=== PATIENT | female | born 1960 | race Caucasian/White ===

== ENCOUNTER 2017-07-19 07:25 | Day surgery (SDC) | payer OTHER ==
[2017-07-19] VITALS (13 sets, daily range): BP systolic 110–176; BP diastolic 64–101; PULSE 58–66; TEMP 36.8–37; O2SAT 97–100; Ht 147.3 cm; Wt 66.0 kg
[~2017-07-19] VITALS: Ht 147.3 cm; Wt 66.0 kg
[~2017-07-19 07:25] MED LIST: ALBU1AER9 INH; CALC1TAB27 PO; DYAZIDE PO; ERGO500037 PO; FURO20TA PO; METO-452 PO; PANT1TAB48 PO; ZNTT/150 PO
[2017-07-19] MEDS ORDERED: LIDOCAINE HCL 2% LOCAL 50ML VIAL INFIL ONE (07:26)
[2017-07-19] MEDS ORDERED: FENTANYL CITRATE INJ 50 MCG/1 ML 2 ML VIAL IV ONE ×2 (07:26→10:45)
[2017-07-19] MEDS ORDERED: LIDOCAINE 4% INH SOLN 4 ML BTL ONE (07:26)
[2017-07-19] MEDS ORDERED: MIDAZOLAM HCL 5 MG/ML 1 ML VIAL IV ONE ×2 (07:26→10:45)
--- NOTE | 2017-07-19 07:38 | History and Physical ---
History & Physical Date of Service Jul 19, 2017. History & Physical 60-year-old female here for evaluation of chronic cough 57-year-old female presents the office for continuation of care of chronic cough. Prior records reviewed. PMHx includes: Severe acid reflux (on PPI and H2B), multiple pulmonary nodules (largets 1mm RLL), hypertension, vitamin-D deficiency , CKD, pulmonary nodule chronic anxiety, GERD, PCOS, and hyperlipidemia. SHe is a life-long non-smoker. Patient denies any history of childhood asthma or allergies. She denies any history of PE/DVT or frequent pneumonia. She denies any history of personal tobacco use however reports secondhand exposure through her parents, and multiple family members. 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 Her occupation has required PPD in the past and these have never been positive. The patient was born in [place] and lived in [place] from 10/25/1979 85 before returning to [place]. She denies any travel. She lives with her . They do not have any pets. The home was built in the 1930s and she reports that they have an old must a basement but she does not go down there often. She states that they use wood stove for eat as well as an electric space heater but denies cough associated with her home heating system. Patient reports history of chronic cough beginning in approximately 2002. She states that her sister has the same cough. She had been prescribed multiple inhalers in the past however felt that these were provocative of cough. additionally she had been transitioned off from lisinopril to losartan and her anti-reflux regimen was escalated without improvement. She had seen ear nose and throat 06/2012 diagnosed with pharyngitis or laryngitis secondary to postnasal drip and reflux. This evaluation also noted cricopharyngeal muscle spasm. Exercise stress test from 08/2014 was unremarkable. initially seen by Dr. Moffett 02/2015 before 12 year history of chronic cough. She had established with Dr. Garcia 08/2012 for continuation of care. 02/[address] Moffett. she was prescribed Advair 500/50 and recommended d/c of losartan, ENT follow-up, updated PFTs (nL spirometry) and repeat non-contrast CT chest for reported h/o pulmonary nodule. Imaging did describe multiple pulmonary nodules the largest measuring 1 centimeter in the right lower lobe. This was followed by PET/CT 02/2015 which demonstrated stability of this 1 centimeter right lower lobe nodule without any FDG uptake. [ also noted left ovarian uptake - followed by gynecology]. Patient was evaluated by ENT 02/2015 and flexible laryngoscopy was completed and notable for mucus on the true vocal cords with mild arytenoid erythema. Adherence to her anti-reflux regimen was recommended and she was treated with two courses of fluconazole as well as a trial of Neurontin 300mg TID for possible neurogenic cough. Unfortunately, she did not note significant symptotic relief with these modalities. On follow-up pulmonary 05/2015, Anastasiia with Flonase/Nasacort was recommended as well as initiation of previously recommended Advair 500/50. PFT 04/23/2015: Very mild obstruction at lower lung volumes with no change in FEV1 post albuterol. Significant for air trapping and reduced DLCO: FVC: 1.92/70 %, FEV1: 1.65/79 %, FEV1/FVC: 86 %/102 %, FEF 25-75 %: 1.73/60 % (48 % change), RV: 1.6/107 %, T.51/86 %, RV/T %/126 %, DLCO: 51 %, dL/VA: 75 % Exam/interview today the patient reports that her cough has persisted. She describes it as annoying. And continues report symptoms which she describes as postnasal drip. She states the cough is worse with lying down, sitting, and working. She states that cough may increase when she transitioned from lying on her right to her left side and then her left side to her right side. She describes coughing paroxysm provoked with these changes which ultimately subsided after some time. She states that she has tried inhalers in the past which include the Advair although is unsure if this was helpful. She does state that for did make her cough after using it. She is interested in trying a nebulizer to determine if this is more efficacious and a hand-held inhaler. She does state that she is adherent to her anti-reflux regimen and has found this helpful. She states that she uses Anastasiia on an as-needed basis and this is palliative for her nasal congestion but has no effect on her cough. She does report symptoms of intermittent headache and vocal hoarseness. She states she has had and EGD in the past but has not had a bronchoscopy in the past. CT chest 02/2015 describes multiple right pulmonary nodules largest measuring 1.1 millimeters located in the right lower lobe. There is a 5 millimeter pleural-based nodule in the right middle lobe and additional tiny nodules suggest on the right upper lobe. There is bibasilar discoid atelectasis as well. CT chest 02/2017: Again seen are small multiple bilateral pulmonary nodules. There is a new pulmonary nodule in the lingula. A pulmonary nodule in the left lower lobe has increased in size previously measuring 3 millimeters now measuring 6 millimeter. There is a new pulmonary nodule in a medium right apex measuring 3 millimeters. There is a new small pulmonary nodule in the right lung base measuring 3 millimeter. There is a lobular nodule in the right lower lobe which has increased in size measuring 1.5 x 0.8 centimeters which I had previously measured 0.9 x 1.7 centimeter. There is several new tiny pulmonary nodules in the right lower lobe. There is no enlargement of the thoracic lymph nodes. PET-CT 03/04/2017: Minimal FDG activity in the largest of the several bilateral pulmonary nodules more suggestive of an infectious/inflammatory etiology. Active Problems 1. Abnormal findings on imaging test 2. Allergic rhinitis 3. Asthma 4. Chronic cough 5. Chronic laryngopharyngitis 6. CKD (chronic kidney disease) stage 3, GFR 30-59 ml/min 7. Common migraine without aura 8. Cyst of kidney, acquired 9. Diaphragmatic hernia 10. Dysphagia, pharyngoesophageal phase 11. Dysuria 12. Gastric reflux 13. Generalized anxiety disorder 14. Hemangioma of intra-abdominal structure 15. Hemorrhoids, external without complications 16. Hypercholesterolemia 17. Hyperlipidemia 18. Hypertension 19. Laryngopharyngeal reflux 20. Metabolic syndrome 21. Obesity (BMI 30.0-34.9) 22. Polycystic ovarian syndrome 23. Post-nasal drip 24. Preoperative testing 25. 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 Vitamin D deficiency 28. History of Endometrial polyp 29. History of Endometriosis Surgical History 1. History of Back Surgery 2. History of Section 3. History of Dilation And Curettage 4. History of Hysteroscopy With Resection For Intrauterine Polyp Removal 5. History of Inguinal Hernia Repair 6. History of Laparoscopy (Diagnostic) Gynecologic With Biopsy Family history 1. Family history of hyperlipidemia 2. Family history of hypertension 3. Family history of sleep apnea 4. Family history of thyroid disease 5. Family history of cardiac disorder 6. Family history of Breast Cancer Social History Never a smoker Never smoker Occasional alcohol use Denied: History of Tobacco Use Current Meds 1. Acetaminophen-Codeine #3 300-30 MG Oral Tablet; TAKE 1 TABLET DAILY NEEDED 2. Anastasiia Allergy 180 MG Oral Tablet; TAKE 1 TABLET DAILY NEEDED; 3. Biotin 1000 MCG Oral Tablet; TAKE DIRECTED 4. Ypfxhbs-Iftrbjlxm-Xynr Oral Tablet; TAKE 1 TABLET DAILY; 5. FLUoxetine HCl - 20 MG Oral Tablet; TAKE 1 TABLET DAILY; 6. Furosemide 20 MG Oral Tablet; TAKE 1 TABLET DAILY NEEDED; 7. HydrOXYzine HCl - 50 MG Oral Tablet; TAKE 1 TABLET AT BEDTIME; 8. Protonix 20 MG Oral Tablet Delayed Release; TAKE 1 TABLET DAILY; 9. RaNITidine HCl - 150 MG Oral Capsule; TAKE 1 CAPSULE TWICE DAILY; 10. Toprol XL 50 MG Oral Tablet Extended Release 24 Hour; TAKE 1 TABLET DAILY; 11. Triamterene-HCTZ 37.5-25 MG Oral Tablet; TAKE 1 TABLET DAILY; 12. Vitamin D (Ergocalciferol) 78331 UNIT Oral Capsule; TAKE 1 CAPSULE TUESDAYS AND Allergies 1. Penicillins Vitals Blood Pressure: 116 / 72, RUE, Sitting Height: 4 ft 9.5 in Weight: 149 lb 9 oz BMI Calculated: 31.81 BSA Calculated: 1.6 O2 Saturation: 99, RA Temperature: 100 F Heart Rate: 82 Respiration: 15 [email or web address] VitalsSectionEnd PhysicalExamSectionStart Physical Exam Constitutional: Well developed, well nourished female No acute distress. Head: + facial symmetry Eyes: EOMi, PERRLA, no conjunctival injection Mouth: Mallampati []. No erythema, exudate, or post nasal gtt Neck: Trachea midline. No adenopathy or masses Respiratory: Non-labored respirations. No wheeze, rales or rhonchi. No clubbing or cyanosis. Cardiovascular: RRR, no MRG. +2 radial pulses. <1s capillary refill. Abdomen: soft, active bowel sounds Integumentary: no rashes, or ecchymosis MSK/Extremities: Moving and developed symmetrically. No peripheral edema. No calf tenderness. Neurologic: A&O, data recall in-tact. Appropriate affect.
--- NOTE | 2017-07-19 08:40 | Procedure Note ---
Pre-Mod Sedation Assessment General Date of Moderate Sedation: Jul 19, 2017. Review Cardiovascular: regular rate, rhythm, no edema, no gallop, no JVD, no murmur Abdomen: normal bowel sounds, non tender, soft, no organomegaly, no pulsatile mass, normal rectal exam Lungs: chest non-tender, lungs clear, normal breath sounds, no respiratory distress Pre-Sedation Airway Assessment Smoking Status: Never Smoker Notes The planned sedation has been discussed with the patient and consent obtained. I have identified the patient, determined the appropriateness of sedation and have assessed the patient immediately prior to the procedure. All medicine(s) and interventions are by my order.
[2017-07-19] MEDS ORDERED: BIOT1CAP8 PO (08:42)
[2017-07-19] MEDS ORDERED: TRIA37.5 PO (08:42)
--- NOTE | 2017-07-19 09:47 | History & Physical Bridge Note ---
H&P Re-Evaluation Bridge Note: I have examined the patient, reviewed the History & Physical and in the interval since the performance of the History & Physical I have noted the following changes of clinical significance: No changes noted
--- NOTE | 2017-07-19 10:15 | Bronchoscopy Procedure Note ---
Bronchoscopy Procedure Note Procedure: Bronchoscopy, conscious sedation, bronchial lavage of the lingula Consent: Obtained through the patient placed into the chart Pre-procedural diagnosis: Chronic cough Post-procedural diagnosis: Chronic cough Start time: 951 End time: 1008 Total time: 17 minutes Analgesia: 2% liquid lidocaine: Via nebulizer 4% gel lidocaine: Via right naris 2% liquid lidocaine: Via bronchoscopy Sedation: Versed IV: 3mg Fentanyl IV: 75g Procedure: The [employer] video bronchoscope was used for this procedure and passed down through the right naris Right naris/posterior naris/posterior oropharynx: Anatomically within normal limits Glottis: Anatomically within normal limits Vocal cords: Proper abduction and abduction, anatomically within normal limits Subglottis/trachea/[place]: Anatomically within normal limits Right bronchial tree: Right mainstem bronchus: Anatomically within normal limits Right upper lobe: Anatomically within normal limits Bronchus intermedius: Anatomically within normal limits Right middle lobe: Anatomically within normal limits Right lower lobe: Anatomically within normal limits Findings: No significant findings noted Left bronchial tree: Left mainstem bronchus: Anatomically within normal limits Left upper lobe: Anatomically within normal limits Lingula: Anatomically within normal limits Left lower lobe: Anatomically within normal limits Findings: No significant findings noted Bronchial alveolar lavage: Lingula EBL: None Complications: None Follow-up: ASU
--- NOTE | 2017-07-19 10:15 | Procedure Note ---
Post-Moderate Sedation Plan General Date of Moderate Sedation Jul 19, 2017. Vital Signs: Vital Signs Past 12 Hours Date Time Temp Pulse Resp B/P (MAP) Pulse Ox O2 Delivery O2 Flow Rate FiO2 07/19/17 09:31 36.8 58 20 176/89 98 Room Air 07/19/17 08:45 36.8 58 20 176/89 (118) 98 Room Air Review - Discharge Plan Post Moderate Sedation Plan: On clinical assessment, the patient appears to have tolerated the conscious sedation without complications. Patient is recovering as anticipated. Patient will continue to be monitored by nursing and may be discharged when conscious sedation discharge criteria are met.
--- NOTE | 2017-07-19 10:19 | Discharge Instructions ---
Discharge Instructions Date of Service Jul 19, 2017. Admission Reason for Admission: Chronic Cough, Asthma Discharge Discharge Diagnosis / Problem: chronic cough Discharge Goals Goal(s): Diagnostic testing Activity Recommendations Activity Limitations: resume your previous activity . Instructions / Follow-Up Instructions / Follow-Up Follow-up with the [facility] pulmonary division Current Hospital Diet Patient's current hospital diet: Discharge Diet Recommended Diet: Regular Diet Procedures Procedures Performed: Bronchoscopy, conscious sedation, bronchial lavage of the lingula Pending Studies Studies pending at discharge: no Medical Emergencies . Who to Call and When: Medical Emergencies: If at any time you feel your situation is an emergency, please call 911 immediately. . Non-Emergent Contact Non-Emergency issues call your: [employer]it[employer] Reactor Technician . . "Provider Documentation" section prepared by Ezra Pennington. . VTE Core Measure Inpt VTE Proph given/why not?: Treatment not indicated
[2017-07-19] MEDS ORDERED: NURSING VERBAL MED ORDER ONE (10:30)
== END 2017-07-19 12:29 | disposition home or self-care (01) ==
LOC: C.ACU 07:25
PROVIDERS: ATTEND Internal Medicine Critical Care Medicine
DX: R05 Cough (principal); K21.9 Gastro-esophageal reflux disease without esophagitis; R91.1 Solitary pulmonary nodule; I12.9 Hypertensive chronic kidney disease with stage 1 through stage 4 chronic kidney disease, or unspecified chronic kidney disease; N18.3 Chronic kidney disease, stage 3 (moderate); F41.9 Anxiety disorder, unspecified; E78.5 Hyperlipidemia, unspecified; J45.909 Unspecified asthma, uncomplicated; E78.00 Pure hypercholesterolemia, unspecified; Z88.0 Allergy status to penicillin; Z98.890 Other specified postprocedural states; Z79.899 Other long term (current) drug therapy; Z82.49 Family history of ischemic heart disease and other diseases of the circulatory system; Z80.3 Family history of malignant neoplasm of breast; Z83.49 Family history of other endocrine, nutritional and metabolic diseases

== ENCOUNTER 2017-08-16 14:15 | Emergency (ER) | payer OTHER ==
[~2017-08-16] VITALS: Ht 147.3 cm; Wt 66.0 kg
[~2017-08-16 14:15] MED LIST changes: +BIOT1CAP8 PO; -DYAZIDE PO; +PANT1TAB3 PO; -PANT1TAB48 PO; +TRIA37.5 PO
[2017-08-16 14:20] VITALS: Ht 147.3 cm; Wt 66.0 kg
[2017-08-16 14:59] VITALS: O2SAT 100
[2017-08-16 15:04] LABS: BASO % 0.1 %; BASO ABS # 0.01 K/uL (0-0.2); COMPLETE YES; EOS % 0.8 %; HEMATOCRIT 38.2 % (37-47); IG% 0.3 %; LYMPH ABS # 1.27 K/uL (1.2-3.4); MEAN CELL VOLUME 81.4 fL (80-100); MEAN CORPUSCULAR HEMOGLOBIN 27.9 pg (25-34); MEAN CORPUSCULAR HGB CONC 34.3 g/dl (32-36); MEAN PLATELET VOLUME 9.8 fL (7.4-10.4); MONO % 4.5 %; NEUT % 80.3 %; PLATELET COUNT 278 K/uL (130-400); RED BLOOD COUNT 4.69 M/uL (4.2-5.4); WHITE BLOOD COUNT 9.08 K/uL (4.8-10.8)
[2017-08-16 15:12] LABS: POINT OF CARE TROPONIN I < 0.030 ng/ml (0-0.045)
[2017-08-16 15:17] LABS: PARTIAL THROMBOPLASTIN RATIO 0.9; PROTHROMBIN TIME (PATIENT) 10.8 SECONDS (9.0-12.0)
--- NOTE | 2017-08-16 15:18 | DIAGNOSTIC IMAGING REPORT ---
CT HEAD WITHOUT CONTRAST (CT) CLINICAL HISTORY: Dizziness COMPARISON STUDY: 08/05/2012 TECHNIQUE: Axial CT of the brain is performed from the vertex to the skull base. IV contrast was not administered for this examination. A dose lowering technique was utilized adhering to the principles of ALARA. CT DOSE: FINDINGS: No intra or extra-axial mass lesions are visualized. There is no CT evidence of acute cortical infarction. There is no evidence of midline shift. There is no acute hemorrhage. No calvarial fractures are visualized. There is no evidence of pathologic ventricular dilatation. There is no evidence of acute sinusitis IMPRESSION: No acute intracranial findings Electronically signed by: Basil Ocasio M.D. 08/16/2017 3:16 PM Dictated Date/Time: 08/16/2017 3:16 PM
[2017-08-16] MEDS ORDERED: FLUO20CA36 PO (15:26)
[2017-08-16] MEDS ORDERED: PANT20TA2 PO (15:26)
[2017-08-16] MEDS ORDERED: MXZC25 PO (15:26)
[2017-08-16] MEDS ORDERED: ALBINS/ NEB (15:26)
[2017-08-16] MEDS ORDERED: TPRSR/50 PO (15:26)
[2017-08-16] MEDS ORDERED: ERGO500011 PO (15:26)
--- NOTE | 2017-08-16 15:26 | DIAGNOSTIC IMAGING REPORT ---
CT OF THE CERVICAL SPINE WITHOUT CONTRAST CLINICAL HISTORY: Injury. Evaluate for fracture. COMPARISON STUDY: PET/CT March 03, 2017. TECHNIQUE: Helical axial images of the cervical spine were obtained without IV contrast. Sagittal and coronal reconstructions were viewed. A dose lowering technique was utilized adhering to the principles of ALARA. FINDINGS: There is straightening of the normal cervical lordosis. Craniocervical junction is intact. There is no acute cervical spine fracture or subluxation. There is no prevertebral edema. Note is made of moderate multilevel facet arthrosis and mild to moderate multilevel degenerative disc disease most pronounced at C4-C5. IMPRESSION: No acute cervical spine fracture or subluxation. Electronically signed by: Kike Erickson M.D. 08/16/2017 3:24 PM Dictated Date/Time: 08/16/2017 3:21 PM
[2017-08-16 15:27] LABS: BUN/CREATININE RATIO 13.8 (10-20); CALCIUM 9.3 mg/dl (8.5-10.1); CREATININE 1.3 mg/dl (0.60-1.20); POTASSIUM 3.8 mmol/L (3.5-5.1)
[2017-08-16] MEDS ORDERED: BIOT300T2 PO (15:27)
--- NOTE | 2017-08-16 15:58 | DIAGNOSTIC IMAGING REPORT ---
CHEST 2 VIEWS ROUTINE CLINICAL HISTORY: Chest pain. COMPARISON STUDY: Chest radiograph November 10, 2015. FINDINGS: Linear right lung opacity suggests atelectasis. A 1.3 cm right lower lobe nodule has likely slightly increased in size since prior exam. Linear left basilar opacity is suggestive of atelectasis. There is no pneumothorax or pleural effusion. Cardiomediastinal silhouette is normal. Pulmonary vascularity is normal. IMPRESSION: 1. No acute cardiopulmonary findings. 2. Slight increase in size of a 1.3 cm right lower lobe nodule. This favors a slowly enlarging neoplasm. Electronically signed by: Kike Erickson M.D. 08/16/2017 3:57 PM Dictated Date/Time: 08/16/2017 3:53 PM
[2017-08-16] MEDS ORDERED: OPTIRAY 320 IV PRN (16:00)
--- NOTE | 2017-08-16 16:39 | DIAGNOSTIC IMAGING REPORT ---
CT ANGIOGRAM OF THE CHEST CLINICAL HISTORY: Atypical chest pain. Dizziness. COMPARISON STUDY: Chest CT scans dated 02/28/2015 and 11/16/2012. Chest x-ray dated 08/16/2017. PET/CT dated 03/03/2017. TECHNIQUE: Following the IV administration of 81 cc of Optiray 320, CT angiogram of the chest was performed from the upper abdomen to the thoracic inlet utilizing the pulmonary embolus protocol. Images are reviewed in the axial, sagittal, and coronal planes. 3-D MIPS images are created and assessed. IV contrast was administered without complication. A dose lowering technique was utilized adhering to the principles of ALARA. CT DOSE: 249.76 mGy.cm FINDINGS: Thyroid: Imaged portions of the thyroid gland are normal in size and attenuation. Thoracic aorta: The thoracic aorta is normal in caliber and demonstrates 4-vessel variant arch anatomy. No dissection is seen. Pulmonary vasculature: The pulmonary trunk is normal in caliber. There are no filling defects identified in main, lobar, or segmental pulmonary branches to suggest pulmonary embolus. Heart: The heart is normal in size and configuration, and without pericardial effusion. Lungs and pleural spaces: The lungs and pleural spaces are clear. There is a 1.5 cm lobulated nodule at the right lung base seen on image #57. This has modestly increased in size from studies dating back to 2013. A 5 mm nodule in the right upper lobe on image #119, a 7 mm pleural-based nodule in the right middle lobe on image #111 in the 7 mm left lower lobe nodule image #66 of all modestly increased in size from previous. At least 10 additional subcentimeter nodules are identified. There is no lobar consolidation or pleural effusion. The trachea and central airways are patent. Mediastinum: There is no mediastinal lymphadenopathy. Jeannette: Clear. Axillae: There is no axillary lymphadenopathy. Upper abdomen: There is a small hiatal hernia. Partially visualized upper abdominal viscera is within normal limits. Skeletal structures: No lytic or blastic bony lesions are seen. IMPRESSION: 1. There is no evidence of pulmonary embolus in the main, lobar, or segmental pulmonary arteries. 2. There is no airspace consolidation or pleural effusion. 3. There are numerous (greater than 10) pulmonary nodules scattered throughout both lungs. The largest measures 1.5 cm end is located in the right lower lobe. These nodules have slowly increased in size as compared to prior studies dating back to 2013 and are pathologically indeterminant. The largest nodule was FDG avid on the 03/03/2017 PET examination and neoplasm is not excluded. Pulmonology follow-up is recommended as tissue sampling will likely be required for definitive characterization.. Electronically signed by: Larry Nguyen M.D. 08/16/2017 4:37 PM Dictated Date/Time: 08/16/2017 4:27 PM
[2017-08-16] MEDS ORDERED: KETOROLAC TROMETHAMINE 30 MG/ML VIAL IV STA (16:46)
[2017-08-16] MEDS ORDERED: SODIUM CHLORIDE 0.9% 500ML 500 ML IV STA (16:46)
[2017-08-16 17:52] VITALS: BP 165/78; PULSE 60; O2SAT 97
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
== END 2017-08-16 18:07 | disposition home or self-care (01) ==
LOC: C.EDB 14:16 → C.EDA 18:07
DX: R07.9 Chest pain, unspecified (principal); S00.83XA Contusion of other part of head, initial encounter; S40.011A Contusion of right shoulder, initial encounter; R20.2 Paresthesia of skin; W22.8XXA Striking against or struck by other objects, initial encounter

== ENCOUNTER 2018-08-28 14:42 | Observation (INO) ==
[2018-08-28] MEDS ORDERED: ONDANSETRON INJ 2 MG/ML 2 ML VIAL IV STA (14:54)
[2018-08-28] MEDS ORDERED: fentaNYL citrate 100 MCG/2 ML VIAL IV PRN (14:56)
[2018-08-28] MEDS ORDERED: SODIUM CHLORIDE 0.9% 1000ML 1,000 ML IV ONE (14:56)
--- NOTE | 2018-08-28 15:10 | Emergency Department Note ---
Entered by Eliud Joy acting as a scribe for Wilfrido Batista DO History of Present Illness General Chief complaint: Chest Pain Stated complaint: BACTERIAL UTI, VOMITING, BACK, CHEST PAIN, JAW/LT Time Seen by Provider: 08/28/18 14:49 Source: patient History of Present Illness Onset (ago): hour(s) (this morning) Location: abdomen (upper) Radiation: other (left jaw, left arm) Pain Consistency: + constant Quality: + burning Associated symptoms: + fever/chills and + nausea/vomiting The patient is a 58 year old female who presents to the Emergency Room with complaints of constant upper abdominal and chest pain beginning this morning. She describes her symptoms as �burning discomfort� and reports radiation to the left side of the jaw and left arm. She states that she has been nauseous and notes that she vomited today at 13:00. She reports a history of similar symptoms but states that they were not as severe in the past, and they resolved without intervention. She notes low-grade fevers. She reports that she is chronically short of breath with a cough, and she states that her cough is non- productive. She also notes chronic swelling of the legs. She notes that she was started on a course of antibiotics for a UTI, stating that she was exhibiting urinary frequency and burning with urination. She states that she drank coffee and had a small amount of pie this morning around 07:00. She reports that she had a stress test performed 3-4 years ago. She notes that she still has her gallbladder. She reports a history of hypertension and high cholesterol. She notes that she was prescribed medication for her cholesterol but stopped taking it after a couple of days. Home Medications Home Medications Medication Instructions Recorded Confirmed Type calcium carb-mag oxide-zinc ox 1 tab PO DAILY 08/28/18 08/28/18 History ergocalciferol (vitamin D2) 50,000 unit PO 2XWK 08/28/18 08/28/18 History [Vitamin D2] fluoxetine 20 mg PO HS 08/28/18 08/28/18 History metoprolol succinate 50 mg PO HS 08/28/18 08/28/18 History ondansetron HCl [Zofran] 4 mg PO Q8 PRN 08/28/18 08/28/18 History pantoprazole [Protonix] 20 mg PO QAM 08/28/18 08/28/18 History triamterene-hydrochlorothiazid 1 tab PO QAM 08/28/18 08/28/18 History ciprofloxacin HCl 250 mg PO Q12H 3 Days #6 tab 08/29/18 Rx promethazine 12.5 mg PO BID PRN #30 tab 08/29/18 Rx Allergies Allergy/AdvReac Type Severity Reaction Status Date / Time atorvastatin Allergy Intermediate MUSCLE Verified 08/28/18 15:14 ACHES & PAINS Penicillins Allergy Unknown HIVES Verified 08/28/18 15:14 Past Med/Surg History Medical History History of abdominal hernia RUDDY (acute kidney injury) Vitamin D deficiency Generalized anxiety disorder CKD (chronic kidney disease) stage 3, GFR 30-59 ml/min Diaphragmatic hernia Chest pain (Acute) Epigastric abdominal pain (Acute) HLD (hyperlipidemia) (Chronic) Hypertension (Chronic) Benign esophageal stricture Biopsy in 2013. Bleeding internal hemorrhoids Hypercholesterolemia Microcytic anemia Pulmonary nodules Surgical History History of section History of laparoscopy History of back surgery Family History Other CAD (coronary artery disease) Diabetes Social History Current Living Situation: Spouse and Family Other Information That Helps Us Care for You: No Feels Safe at Home: Yes Safety Concerns: Feels Safe At This Time Smoking Status: Never smoker Second Hand Exposure: Yes (As a child and at work. ) Hx Alcohol Use: Yes Alcohol type: wine Alcohol Intake Frequency: holidays/ special occasions only Hx Substance Use: No Beliefs That Will Affect Care: None Preferred Language: French Review of Systems See HPI for pertinent positives & negatives. and A total of 10 systems reviewed and were otherwise negative Physical Exam Vital Signs Vital Signs - 24 hr 08/28/18 23:55 08/29/18 03:52 08/29/18 07:50 Temperature 36.8 C 36.9 C 36.8 C Temperature Source Oral Oral Oral Pulse Rate [Apical] 59 L 60 59 L Respiratory Rate 18 22 18 Blood Pressure [Left Arm] 150/71 H 151/95 H 157/76 H Blood Pressure [Right Arm] Blood Pressure Mean [Left Arm] 97 113 103 Blood Pressure Position [Left Arm] Lying Lying Lying Pulse Oximetry 96 96 94 Oxygen Delivery Method Room Air Room Air Room Air 08/29/18 11:20 08/29/18 14:19 Temperature 36.8 C 36.8 C Temperature Source Oral Pulse Rate [Apical] 75 75 Respiratory Rate 18 18 Blood Pressure [Left Arm] 109/74 109/74 Blood Pressure [Right Arm] 135/86 Blood Pressure Mean [Left Arm] 85 Blood Pressure Position [Left Arm] Lying Pulse Oximetry 93 93 Oxygen Delivery Method Room Air GENERAL: Patient is awake and alert. She appears to be uncomfortable and anxious per EYES: The conjunctivae are clear. The pupils are round and reactive. EARS, NOSE, MOUTH AND THROAT: The nose is without any evidence of any deformity. Mucous membranes are moist tongue is midline NECK: The neck is nontender and supple. RESPIRATORY: Normal respiratory effort is noted there is no evidence of wheezing rhonchi or rales CARDIOVASCULAR: Regular rate and rhythm noted there no murmurs rubs or gallops normal S1 normal S2 GASTROINTESTINAL: Abdomen is mildly distended and soft. There is significant tenderness in the epigastric region. There is no guarding or rigidity noted. There is no pulsatile mass appreciated. BACK: No midline tenderness or or step-off noted range of motion in flexion extension as well as rotation no signs of muscle spasm noted MUSCULOSKELETAL/EXTREMITIES: There is no evidence of gross deformity full range of motion is noted in the hips and shoulders SKIN: There is no obvious evidence of any rash. There are no petechiae, pallor or cyanosis noted. NEUROLOGIC: Patient is awake alert and oriented x3 strength is symmetric patellar reflexes are 2+ bilaterally Course 1451: Past medical records reviewed. The patient was evaluated in room A3, and a complete history and physical examination were performed. 1551: The patient reports that she feels nauseous. 1607: She states that she does not feel much improvement after medication. 1731: I consulted Marybeth Graves PA-C: [facility] Hospitalist. She will evaluate the patient for hospitalization. Consultations Consultation #1: I consulted Marybeth Graves PA-C: [facility] Hospital[facility]. She will evaluate the patient for hospitalization. Time: 17:31 Administered Medications Discontinued Medications Al Hydrox/Mg Hydrox/Simethicone () Confirm Administered Dose 1 dose PO .STK-MED ONE Stop: 08/28/18 17:35 Last Admin: 08/28/18 17:37 Dose: 1 dose Aspirin (Aspirin) 324 mg PO NOW STA Stop: 08/28/18 17:17 Last Admin: 08/28/18 17:36 Dose: 324 mg Aspirin (Ecotrin) 81 mg PO QAM [facility] Stop: 09/28/18 08:59 Last Admin: 08/29/18 08:29 Dose: 81 mg Atropine Sulfate (Atropine Sulfate) Confirm Administered Dose 1 mg IV .STK-MED ONE Stop: 08/29/18 10:28 Last Admin: 08/29/18 11:33 Dose: Not Given Atropine Sulfate (Atropine Sulfate) Confirm Administered Dose 1 mg IV .STK-MED ONE Stop: 08/29/18 10:28 Last Admin: 08/29/18 11:33 Dose: Not Given Ciprofloxacin (Cipro) 250 mg PO Q12H [facility] Stop: 09/02/18 20:59 Last Admin: 08/29/18 08:29 Dose: 250 mg Admin: 08/28/18 20:28 Dose: 250 mg Al Hydrox/Mg Hydrox/Simethicone 18 ml/ Lidocaine HCl 6 ml/ [employer]ENTIFIER 1 ea 0 ml PO ONE ONE Stop: 08/28/18 17:17 Last Admin: 08/28/18 17:38 Dose: Not Given Dobutamine HCl (Dobutrex) Confirm Administered Dose 250 mg IV .STK-MED ONE Stop: 08/29/18 10:28 Last Admin: 08/29/18 11:34 Dose: Not Given Fentanyl Citrate (Fentanyl Citrate) 50 mcg IV Q15M PRN PRN Reason: Pain Stop: 09/11/18 14:55 Last Admin: 08/28/18 15:13 Dose: 50 mcg Fluoxetine HCl (Prozac) 20 mg PO HS [facility] Stop: 09/27/18 20:59 Last Admin: 08/28/18 20:28 Dose: 20 mg Heparin Sodium (Porcine) (Heparin Sodium (Porcine)) 5,000 units SQ Q8 [facility] Stop: 09/27/18 21:59 Last Admin: 08/29/18 06:25 Dose: 5,000 units Admin: 08/28/18 22:14 Dose: 5,000 units Sodium Chloride (Nss 1000ml) 1,000 mls @ 999 mls/hr IV .Q1H1M ONE Stop: 08/28/18 15:56 Last Infusion: 08/28/18 16:00 Dose: 0 mls/hr Admin: 08/28/18 15:06 Dose: 999 mls/hr Promethazine HCl 12.5 mg/ (Sodium Chloride) 50.5 mls @ 204 mls/hr IV NOW STA Stop: 08/28/18 16:06 Last Infusion: 08/28/18 16:32 Dose: 0 mls/hr Admin: 08/28/18 16:09 Dose: 204 mls/hr Sodium Chloride (Nss 1000ml) 1,000 mls @ 50 mls/hr IV .Q20H [facility] Stop: 09/27/18 19:59 Last Admin: 08/29/18 06:24 Dose: 100 mls/hr Infusion: 08/29/18 06:24 Dose: 100 mls/hr Admin: 08/28/18 20:29 Dose: 100 mls/hr Ioversol (Optiray 320 125ml) 120 ml IV ONCE PRN PRN Reason: Interaction Checking Stop: 09/01/18 16:43 Last Admin: 08/28/18 16:44 Dose: 120 ml Metoprolol Succinate (Toprol Xl) 50 mg PO HS [facility] Stop: 09/27/18 20:59 Last Admin: 08/28/18 20:29 Dose: 50 mg Metoprolol Tartrate (Lopressor) Confirm Administered Dose 5 mg IV .STK-MED ONE Stop: 08/29/18 10:28 Last Admin: 08/29/18 11:34 Dose: Not Given Metoprolol Tartrate (Lopressor) Confirm Administered Dose 5 mg IV .STK-MED ONE Stop: 08/29/18 10:28 Last Admin: 08/29/18 11:34 Dose: Not Given Ondansetron HCl (Zofran) 4 mg IV NOW STA Stop: 08/28/18 14:55 Last Admin: 08/28/18 15:04 Dose: 4 mg Ondansetron HCl (Zofran) 4 mg IV Q6H PRN PRN Reason: Nausea Stop: 09/27/18 19:49 Last Admin: 08/29/18 00:06 Dose: 4 mg Pantoprazole Sodium (Protonix) 40 mg PO QAM [facility] Stop: 09/28/18 08:59 Last Admin: 08/29/18 08:28 Dose: 40 mg Medical Decision Making Differential Diagnosis Differential diagnosis: Etiologies such as appendicitis, diverticulitis, PUD, biliary pathology, UTI, pancreatitis, obstruction, mesenteric ischemia, aortic pathology, infections, inflammatory bowel disease, renal colic, as well as others were entertained. Medical Records Attestation: I reviewed the patient's medical records. Home Medications Current Medication List: was personally reviewed by me Laboratory Data Attestation: I reviewed the patient's lab results. Result diagrams: 08/29/18 02:56 08/29/18 02:56 Lab Results 08/28/18 08/28/18 08/28/18 Range/Units 15:09 15:09 15:09 WBC 8.21 (4.8-10.8) K/uL RBC 4.75 (4.2-5.4) M/uL Hgb 13.0 (12.0-16.0) g/dL Hct 38.6 (37-47) % MCV 81.3 (80-100) fL MCH 27.4 (25-34) pg MCHC 33.7 (32-36) g/dL RDW Std Deviation 48.2 H (36.4-46.3) fL RDW Coeff of Cathy 16.0 H (11.5-14.5) % Plt Count 249 (130-400) K/uL MPV 9.9 (7.4-10.4) fL Immature Gran % (Auto) 0.1 % Neut % (Auto) 79.4 % Lymph % (Auto) 15.3 % Miller % (Auto) 4.6 % Eos % (Auto) 0.5 % Baso % (Auto) 0.1 % Immature Gran # (Auto) 0.01 (0.00-0.02) K/uL Neut # (Auto) 6.51 H (1.4-6.5) K/uL Lymph # (Auto) 1.26 (1.2-3.4) K/uL Miller # (Auto) 0.38 (0.11-0.59) K/uL Eos # (Auto) 0.04 (0-0.5) K/uL Baso # (Auto) 0.01 (0-0.2) K/uL PT 11.5 (9.0-12.0) Seconds INR 1.1 (0.9-1.1) APTT 24.0 (21.0-31.0) Seconds PTT Ratio 0.9 Sodium 139 (136-145) mmol/L Potassium 3.5 (3.5-5.1) mmol/L Chloride 102 (98-107) mmol/L Carbon Dioxide 26 (21-32) mmol/L Anion Gap 11.0 (3-11) BUN 11 (7-18) mg/dl Creatinine 1.64 H (0.6-1.2) mg/dl Est Cr Clr Drug Dosing 30.9 ml/min Est GFR ( Amer) 40.1 Est GFR (Non-Af Amer) 34.6 BUN/Creatinine Ratio 6.9 L (10-20) Glucose 107 H (70-99) mg/dl Calcium 9.1 (8.5-10.1) mg/dl Total Bilirubin 0.3 (0.1-1) mg/dl AST 13 L (15-37) U/L ALT 20 (12-78) U/L Alkaline Phosphatase 132 H (45-117) U/L Troponin I < 0.015 (0-0.045) ng/ml Total Protein 7.7 (6.4-8.2) gm/dl Albumin 3.9 (3.4-5.0) gm/dl Globulin 3.8 (2.5-4.0) gm/dl Albumin/Globulin Ratio 1.0 (0.9-2) Triglycerides (0-150) mg/dl Cholesterol (0-200) mg/dl LDL Cholesterol, Calc mg/dl VLDL Cholesterol, Calc mg/dl HDL Cholesterol mg/dl Cholesterol/HDL Ratio Lipase 120 (73-393) U/L Urine Color Urine Appearance (Clear) Urine pH (4.5-7.5) Ur Specific [place] (1.000-1.030) Urine Protein (Negative) Urine Glucose (UA) (Negative) Urine Ketones (Negative) Urine Blood (Negative) Urine Nitrite (Negative) Urine Bilirubin (Negative) Urine Urobilinogen (Negative) Ur Leukocyte Esterase (Negative) 08/28/18 08/28/18 08/29/18 Range/Units 20:45 Unknown 02:56 WBC (4.8-10.8) K/uL RBC (4.2-5.4) M/uL Hgb (12.0-16.0) g/dL Hct (37-47) % MCV (80-100) fL MCH (25-34) pg MCHC (32-36) g/dL RDW Std Deviation (36.4-46.3) fL RDW Coeff of Cathy (11.5-14.5) % Plt Count (130-400) K/uL MPV (7.4-10.4) fL Immature Gran % (Auto) % Neut % (Auto) % Lymph % (Auto) % Miller % (Auto) % Eos % (Auto) % Baso % (Auto) % Immature Gran # (Auto) (0.00-0.02) K/uL Neut # (Auto) (1.4-6.5) K/uL Lymph # (Auto) (1.2-3.4) K/uL Miller # (Auto) (0.11-0.59) K/uL Eos # (Auto) (0-0.5) K/uL Baso # (Auto) (0-0.2) K/uL PT (9.0-12.0) Seconds INR (0.9-1.1) APTT (21.0-31.0) Seconds PTT Ratio Sodium 141 (136-145) mmol/L Potassium 4.2 D (3.5-5.1) mmol/L Chloride 106 (98-107) mmol/L Carbon Dioxide 30 (21-32) mmol/L Anion Gap 5.0 (3-11) BUN 9 (7-18) mg/dl Creatinine 1.42 H (0.6-1.2) mg/dl Est Cr Clr Drug Dosing 36.2 ml/min Est GFR ( Amer) 47.7 Est GFR (Non-Af Amer) 41.2 BUN/Creatinine Ratio 6.5 L (10-20) Glucose 82 (70-99) mg/dl Calcium 8.4 L (8.5-10.1) mg/dl Total Bilirubin (0.1-1) mg/dl AST (15-37) U/L ALT (12-78) U/L Alkaline Phosphatase (45-117) U/L Troponin I < 0.015 < 0.015 (0-0.045) ng/ml Total Protein (6.4-8.2) gm/dl Albumin (3.4-5.0) gm/dl Globulin (2.5-4.0) gm/dl Albumin/Globulin Ratio (0.9-2) Triglycerides (0-150) mg/dl Cholesterol (0-200) mg/dl LDL Cholesterol, Calc mg/dl VLDL Cholesterol, Calc mg/dl HDL Cholesterol mg/dl Cholesterol/HDL Ratio Lipase (73-393) U/L Urine Color Yellow Urine Appearance Clear (Clear) Urine pH 8.0 H (4.5-7.5) Ur Specific [place] 1.009 (1.000-1.030) Urine Protein Negative (Negative) Urine Glucose (UA) Negative (Negative) Urine Ketones Negative (Negative) Urine Blood Negative (Negative) Urine Nitrite Negative (Negative) Urine Bilirubin Negative (Negative) Urine Urobilinogen Negative (Negative) Ur Leukocyte Esterase Negative (Negative) 08/29/18 08/29/18 Range/Units 02:56 02:56 WBC 4.98 (4.8-10.8) K/uL RBC 4.20 (4.2-5.4) M/uL Hgb 11.3 L (12.0-16.0) g/dL Hct 34.9 L (37-47) % MCV 83.1 (80-100) fL MCH 26.9 (25-34) pg MCHC 32.4 (32-36) g/dL RDW Std Deviation 50.3 H (36.4-46.3) fL RDW Coeff of Cathy 16.4 H (11.5-14.5) % Plt Count 191 (130-400) K/uL MPV 9.0 (7.4-10.4) fL Immature Gran % (Auto) % Neut % (Auto) % Lymph % (Auto) % Miller % (Auto) % Eos % (Auto) % Baso % (Auto) % Immature Gran # (Auto) (0.00-0.02) K/uL Neut # (Auto) (1.4-6.5) K/uL Lymph # (Auto) (1.2-3.4) K/uL Miller # (Auto) (0.11-0.59) K/uL Eos # (Auto) (0-0.5) K/uL Baso # (Auto) (0-0.2) K/uL PT (9.0-12.0) Seconds INR (0.9-1.1) APTT (21.0-31.0) Seconds PTT Ratio Sodium (136-145) mmol/L Potassium (3.5-5.1) mmol/L Chloride (98-107) mmol/L Carbon Dioxide (21-32) mmol/L Anion Gap (3-11) BUN (7-18) mg/dl Creatinine (0.6-1.2) mg/dl Est Cr Clr Drug Dosing ml/min Est GFR ( Amer) Est GFR (Non-Af Amer) BUN/Creatinine Ratio (10-20) Glucose (70-99) mg/dl Calcium (8.5-10.1) mg/dl Total Bilirubin (0.1-1) mg/dl AST (15-37) U/L ALT (12-78) U/L Alkaline Phosphatase (45-117) U/L Troponin I (0-0.045) ng/ml Total Protein (6.4-8.2) gm/dl Albumin (3.4-5.0) gm/dl Globulin (2.5-4.0) gm/dl Albumin/Globulin Ratio (0.9-2) Triglycerides 107 (0-150) mg/dl Cholesterol 125 (0-200) mg/dl LDL Cholesterol, Calc 69 mg/dl VLDL Cholesterol, Calc 21 mg/dl HDL Cholesterol 35 mg/dl Cholesterol/HDL Ratio 4 Lipase (73-393) U/L Urine Color Urine Appearance (Clear) Urine pH (4.5-7.5) Ur Specific [place] (1.000-1.030) Urine Protein (Negative) Urine Glucose (UA) (Negative) Urine Ketones (Negative) Urine Blood (Negative) Urine Nitrite (Negative) Urine Bilirubin (Negative) Urine Urobilinogen (Negative) Ur Leukocyte Esterase (Negative) Imaging Data Radiologist's Impression: Radiology results as stated below per my review and the radiologist's interpretation: CT OF THE ABDOMEN AND PELVIS WITH CONTRAST CLINICAL HISTORY: Upper abdominal pain. COMPARISON STUDY: PET/CT March 03, 2017. TECHNIQUE: Following IV administration of 120 mL of Optiray-320, axial images of the abdomen and pelvis were obtained from the lung bases to the proximal femurs. Images were reviewed in the axial, sagittal, and coronal planes. IV contrast was administered without complication. Automated exposure control was utilized for the study. A dose lowering technique was utilized adhering to the principles of ALARA. CT DOSE: 400.42 mGy.cm FINDINGS: Multiple nodules within visualized portions of the lower lungs are unchanged since CT of April 18, 2018, including a 1.3 cm right lower lobe nodule on image 36 of 426. No pneumatosis, free air or portal venous gas is present. There is fatty infiltration of the liver. The spleen, adrenal glands and pancreas are normal. A 1.7 cm lesion within the upper pole of the left kidney represents a hyperdense cyst when correlating with prior noncontrast chest CT. There is a cyst within the upper pole the right kidney. There is no evidence for a bowel obstruction. The appendix is normal. There is no ascites or lymphadenopathy. There is no evidence for a bowel obstruction. No bowel wall thickening is noted. There are no suspicious osseous lesions. Major vasculature is patent. No peripancreatic or pericholecystic infiltration is present. IMPRESSION: 1. No acute process within the abdomen or pelvis. 2. Multiple pulmonary nodules within the lower lungs which are unchanged since CT of April 18, 2018. These remain indeterminate. 3. Fatty infiltration of the liver. 4. Normal appendix. No bowel obstruction. Electronically signed by: Kike Erickson M.D. 08/28/2018 5:06 PM XR chest 1V portable CLINICAL HISTORY: Chest pain. COMPARISON STUDY: Chest CT April 18, 2018 and chest radiograph August 16, 2017. FINDINGS: There is no pneumothorax or pleural effusion. There is no consolidation or evidence for pulmonary edema. 1.3 cm right lower lobe nodule is unchanged since CT of April 18, 2018. This remains indeterminate. There is no evidence for pulmonary edema. IMPRESSION: 1. No acute cardiopulmonary findings. 2. No significant change in a 1.3 cm right lower lobe nodule which remains indeterminate. Electronically signed by: Kike Erickson M.D. 08/28/2018 3:44 PM ECG Data Attestation: I personally reviewed and interpreted this ECG as follows: Indication: abdominal pain Rate (beats per minute): 72 Rhythm: normal sinus Findings: no PAC, no PVC, no ST depression and no ST elevation Comparison ECG Date: from (08/16/17) Change: no significant change Additional Comments: Repeat ECG shows a normal sinus rhythm at a rate of 70 bpm. There is no ectopy or acute ST segment abnormalities. There is no change from the first ECG. Blood Pressure Blood Pressure Findings: Elevated blood pressure Blood Pressure Disposition: further management by hospitalist JOSE Narrative The patient is a 58-year-old female who presented to the emergency department for an evaluation of chest discomfort. The patient's pain appeared to be epigastric as well as substernal. She did have some radiation of the pain to her shoulder as well as her jaw. The patient was concerned that this could be cardiac related. Her EKG did not show any acute ST segment abnormalities and her initial troponin was negative. I discussed the patient's laboratory and radiographic studies with her. I also discussed the limitations of the emergency department workup for chest pain with her. A CT abdomen and pelvis was obtained to ensure that this does not represent an intra-abdominal cause for her pain ultimately no cause could be found. For this reason I discussed her case with the on-call [facility] hospitalist group. They have agreed to evaluate the patient in the emergency department for further management and disposition. The patient was treated with pain medication in the emergency department. She was also given aspirin and a GI cocktail. Impression & Plan Chest pain, Epigastric abdominal pain Discharge Plan Visit Data *Final* Discharge Date/Time: 08/28/18 19:12 Chief Complaint: Chest Pain Stated Complaint: BACTERIAL UTI, VOMITING, BACK, CHEST PAIN, JAW/LT ED Provider: Wilfrido Batista Discharge Problem: Chest pain, Epigastric abdominal pain Patient Disposition: Admitted As Inpatient Discharge Instructions Interventions: ED Discharge Assessment Last Done: 08/28/18 19:12 The scribe's documentation has been prepared under my direction and personally reviewed by me in its entirety. I confirm that the note above accurately reflects all work, treatment, procedures, and medical decision making performed by me.
[2018-08-28 15:18] LABS: Basophils # (auto) 0.01 K/uL (0-0.2); Basophils % (auto) 0.1 %; Eosinophils # (auto) 0.04 K/uL (0-0.5); Eosinophils % (auto) 0.5 %; Hematocrit (blood only) 38.6 % (37-47); Immature Granulocytes # (auto) 0.01 K/uL (0.00-0.02); Immature Granulocytes % (auto) 0.1 %; Lymphocytes # (auto) 1.26 K/uL (1.2-3.4); Lymphocytes % (auto) 15.3 %; Mean Corpuscular Hgb Conc 33.7 g/dL (32-36); Mean Corpuscular Volume 81.3 fL (80-100); Mean Platelet Volume 9.9 fL (7.4-10.4); Monocytes # (auto) 0.38 K/uL (0.11-0.59); Monocytes % (auto) 4.6 %; Neutrophils # (auto) 6.51 K/uL (1.4-6.5); Neutrophils % (auto) 79.4 %; Platelet Count 249 K/uL (130-400); RDW Standard Deviation 48.2 fL (36.4-46.3); Red Blood Count 4.75 M/uL (4.2-5.4); White Blood Count 8.21 K/uL (4.8-10.8)
[2018-08-28 15:26] LABS: INR 1.1 (0.9-1.1); Partial Thromboplastin Ratio 0.9; Prothrombin Time 11.5 Seconds (9.0-12.0)
[2018-08-28 15:44] LABS: Alanine Aminotransferase 20 U/L (12-78); Albumin Level 3.9 gm/dl (3.4-5.0); Aspartate Aminotransferase 13 U/L (15-37); BUN Creatinine Ratio 6.9 (10-20); Blood Urea Nitrogen 11 mg/dl (7-18); Calcium 9.1 mg/dl (8.5-10.1); Carbon Dioxide 26 mmol/L (21-32); Chloride 102 mmol/L (98-107); Creatinine Clr Calc Pharmacy 30.9 ml/min; Est GFR (African American) 40.1; Est GFR (Non-African American) 34.6; Glucose 107 mg/dl (70-99); Potassium 3.5 mmol/L (3.5-5.1); Sodium 139 mmol/L (136-145)
--- NOTE | 2018-08-28 15:46 | XRay Report ---
XR chest 1V portable CLINICAL HISTORY: Chest pain. COMPARISON STUDY: Chest CT April 18, 2018 and chest radiograph August 16, 2017. FINDINGS: There is no pneumothorax or pleural effusion. There is no consolidation or evidence for pul monary edema. 1.3 cm right lower lobe nodule is unchanged since CT of April 18, 2018. This remains i ndeterminate. There is no evidence for pulmonary edema. IMPRESSION: 1. No acute cardiopulmonary findings. 2. No significant change in a 1.3 cm right lower lobe nodule which remains indeterminate. Electronically signed by: Kike Erickson M.D. 08/28/2018 3:44 PM
[2018-08-28 15:49] LABS: Alkaline Phosphatase 132 U/L (45-117); Bilirubin,Total 0.3 mg/dl (0.1-1); Globulin 3.8 gm/dl (2.5-4.0); Total Protein 7.7 gm/dl (6.4-8.2); Troponin I < 0.015 ng/ml (0-0.045)
[2018-08-28] MEDS ORDERED: PROMETHAZINE HCL 12.5 MG in SODIUM CHLORIDE 0.9% 50 ML IV STA (15:52)
[2018-08-28 15:56] LABS: Appearance Urine Clear (Clear); Bilirubin Urine Negative (Negative); Color Urine Yellow; Glucose Urine UA Negative (Negative); Ketones Urine Negative (Negative); Leukocyte Esterase Urine Negative (Negative); Nitrite Urine Negative (Negative); Protein Urine Negative (Negative); Specific Gravity Urine 1.009 (1.000-1.030); Urobilinogen Urine Negative (Negative)
[2018-08-28] MEDS ORDERED: OPTIRAY 320 125ml IV PRN (16:44)
--- NOTE | 2018-08-28 17:08 | CT Scan Report ---
CT OF THE ABDOMEN AND PELVIS WITH CONTRAST CLINICAL HISTORY: Upper abdominal pain. COMPARISON STUDY: PET/CT March 03, 2017. TECHNIQUE: Following IV administration of 120 mL of Optiray-320, axial images of the abdomen and pelv is were obtained from the lung bases to the proximal femurs. Images were reviewed in the axial, sagit hector, and coronal planes. IV contrast was administered without complication. Automated exposure contr ol was utilized for the study. A dose lowering technique was utilized adhering to the principles of ALARA. CT DOSE: 400.42 mGy.cm FINDINGS: Multiple nodules within visualized portions of the lower lungs are unchanged since CT of 2017, including a 1.3 cm right lower lobe nodule on image 36 of 426. No pneumatosis, free ai r or portal venous gas is present. There is fatty infiltration of the liver. The spleen, adrenal glan ds and pancreas are normal. A 1.7 cm lesion within the upper pole of the left kidney represents a hyp erdense cyst when correlating with prior noncontrast chest CT. There is a cyst within the upper pole the right kidney. There is no evidence for a bowel obstruction. The appendix is normal. There is no a scites or lymphadenopathy. There is no evidence for a bowel obstruction. No bowel wall thickening is noted. There are no suspicious osseous lesions. Major vasculature is patent. No peripancreatic or per icholecystic infiltration is present. IMPRESSION: 1. No acute process within the abdomen or pelvis. 2. Multiple pulmonary nodules within the lower lungs which are unchanged since CT of April 18, 2018. These remain indeterminate. 3. Fatty infiltration of the liver. 4. Normal appendix. No bowel obstruction. Electronically signed by: Kike Erickson M.D. 08/28/2018 5:06 PM
[2018-08-28] MEDS ORDERED: ASPIRIN CHEW 324 MG PO STA (17:16)
[2018-08-28] MEDS ORDERED: ALUMINUM/MAGNESIUM SUSP 18 ML, LIDOCAINE HCL VISCOUS 2% 6 ML, BARCODE IDENTIFIER 1 EA PO ONE (17:16)
[2018-08-28] MEDS ORDERED: GI COCKTAIL ED USE PO ONE (17:34)
--- NOTE | 2018-08-28 19:00 | History & Physical Report ---
Date of Service August 28, 2018 Assessment & Plan (1) Chest pain: Possible related to GI etiology vs anxiety Need to R/O ACS received aspirin 325 mg in the ER initial Troponin negative EKG showed no ischemic changes Will trend troponin Will get an echo Continue asa 81 mg and metoprolol will add protonix Statin intolerance cardio consult Will make NPO after midnight if plan for any stress test will monitor in tele (2) RUDDY (acute kidney injury): (3) CKD (chronic kidney disease) stage 3, GFR 30-59 ml/min: Possible related to Bactrium in the setting of poor oral intake creatine on admission 1.6, baseline btw 1.1 to 1.3 NSS at 100cc Avoid nephrotoxic agents Monitor BMP (4) Epigastric abdominal pain: (5) Diaphragmatic hernia: CT abd/pelvis showed no acute finding PPI daily and zofran prn for nausea (6) Generalized anxiety disorder: Continue Zoloft (7) Vitamin D deficiency: On vit d [id number] 2xweek (8) HLD (hyperlipidemia): Chol 243 and LDL 143 on 06/23 Stopped statin 3 weeks ago Check Lipid panel (9) UTI (urinary tract infection): outpatient urine cx only showed [id number] colonies Was starting on Bactrium Will hold bactrium due to worsening creatinine UA on admission negative Complaint of dysuria and urgency today Will start on cipro BID Intermittent blurry vision Possible related to migraine Will get a carotid doppler to reassure her since she is very anxious about it. DVT px on heparin subq Code status full code History of Present Illness Chief Complaint: Chest pain Primary Care Provider: Marjan Woodard DO 58 y/o Female with PMH of HTN, Dyslipidemia, Anxiety , Diaphragmatic hernia , CKD stage 3 came to the ER for mid epigastric and chest discomfort. Pt said that the mid episgatric/ chest discomfort started on yesterday. She describes her symptoms as �burning discomfort�, then later she said that she feels a pressure in her chest like someone sitting in her chest. she said that it radiating to her left jaw area and left shoulder area associated with numbness in her arm. She said that today her chest discomfort worsening. She said that she had an episode of vomiting today. She was seen at her PCP last Wednesday for UTI and was given bactrium. She said that she had many stress test done in the past and last one was about 4 years ago. She said that she was starting on statin but could not tolerate due to muscle ache. Pt said that she has been having a burning pain around her carotid area for the last 2 weeks that was associated with blurry vision. She said that she does have SOB on exertion at baseline. She has not been using her neb treatment because her insurance does not cover it. Received fentanyl, aspirin and GI cokctail in the ER. Currently denies any chest pain, palpitation and sob. Allergies Allergy/AdvReac Type Severity Reaction Status Date / Time atorvastatin Allergy Intermediate MUSCLE Verified 08/28/18 15:14 ACHES & PAINS Penicillins Allergy Unknown HIVES Verified 08/28/18 15:14 Home Medications Home Medications Medication Instructions Recorded Confirmed Type calcium carb-mag oxide-zinc ox 1 tab PO DAILY 08/28/18 08/28/18 History ergocalciferol (vitamin D2) 50,000 unit PO 2XWK 08/28/18 08/28/18 History [Vitamin D2] fluoxetine 20 mg PO HS 08/28/18 08/28/18 History metoprolol succinate 50 mg PO HS 08/28/18 08/28/18 History ondansetron HCl [Zofran] 4 mg PO Q8 PRN 08/28/18 08/28/18 History pantoprazole [Protonix] 20 mg PO QAM 08/28/18 08/28/18 History sulfamethoxazole-trimethoprim 1 tab PO BID 08/28/18 08/28/18 History [Bactrim DS] triamterene-hydrochlorothiazid 1 tab PO QAM 08/28/18 08/28/18 History Past Med/Surg History Family History Other CAD (coronary artery disease) Diabetes Social History Current Living Situation: Spouse and Family Other Information That Helps Us Care for You: No Feels Safe at Home: Yes Safety Concerns: Feels Safe At This Time Smoking Status: Never smoker Second Hand Exposure: Yes (As a child and at work. ) Hx Alcohol Use: Yes Alcohol type: wine Alcohol Intake Frequency: holidays/ special occasions only Hx Substance Use: No Beliefs That Will Affect Care: None Preferred Language: Beninese Communication Ability: Effective Personnel Administrator Required: No Review of Systems All systems reviewed & are unremarkable except as noted in HPI & below Physical Exam 2 Vital Signs (Past 24 Hours): Last Vital Signs Temp 37.0 C 08/28/18 15:45 Pulse 76 08/28/18 17:05 Resp 20 08/28/18 17:05 BP 124/80 08/28/18 17:05 Pulse Ox 95 08/28/18 17:05 Physical Exam: General- No acute distress Head- atraumatic Eyes- PERRL, EOMI, ENT- oropharynx clear Neck- supple, no JVD Lungs- clear to auscultation Heart- regular rhythm; no murmur Abdomen- normal bowel sounds, soft, +tender Extremities- no calf tenderness Neuro- alert, oriented x 3; PERRL, EOMI; no facial palsy; no dysarthria Skin- warm & dry Results & Data Diagnostic Findings CT OF THE ABDOMEN AND PELVIS WITH CONTRAST CLINICAL HISTORY: Upper abdominal pain. COMPARISON STUDY: PET/CT March 03, 2017. TECHNIQUE: Following IV administration of 120 mL of Optiray-320, axial images of the abdomen and pelvis were obtained from the lung bases to the proximal femurs. Images were reviewed in the axial, sagittal, and coronal planes. IV contrast was administered without complication. Automated exposure control was utilized for the study. A dose lowering technique was utilized adhering to the principles of ALARA. CT DOSE: 400.42 mGy.cm FINDINGS: Multiple nodules within visualized portions of the lower lungs are unchanged since CT of April 18, 2018, including a 1.3 cm right lower lobe nodule on image 36 of 426. No pneumatosis, free air or portal venous gas is present. There is fatty infiltration of the liver. The spleen, adrenal glands and pancreas are normal. A 1.7 cm lesion within the upper pole of the left kidney represents a hyperdense cyst when correlating with prior noncontrast chest CT. There is a cyst within the upper pole the right kidney. There is no evidence for a bowel obstruction. The appendix is normal. There is no ascites or lymphadenopathy. There is no evidence for a bowel obstruction. No bowel wall thickening is noted. There are no suspicious osseous lesions. Major vasculature is patent. No peripancreatic or pericholecystic infiltration is present. IMPRESSION: 1. No acute process within the abdomen or pelvis. 2. Multiple pulmonary nodules within the lower lungs which are unchanged since CT of April 18, 2018. These remain indeterminate. 3. Fatty infiltration of the liver. 4. Normal appendix. No bowel obstruction. Electronically signed by: Kike Erickson M.D. 08/28/2018 5:06 PM Dictated: 08/28/18 1659 Transcribed: 08/28/18 1659 XR chest 1V portable CLINICAL HISTORY: Chest pain. COMPARISON STUDY: Chest CT April 18, 2018 and chest radiograph August 16, 2017. FINDINGS: There is no pneumothorax or pleural effusion. There is no consolidation or evidence for pulmonary edema. 1.3 cm right lower lobe nodule is unchanged since CT of April 18, 2018. This remains indeterminate. There is no evidence for pulmonary edema. IMPRESSION: 1. No acute cardiopulmonary findings. 2. No significant change in a 1.3 cm right lower lobe nodule which remains indeterminate. Electronically signed by: Kike Erickson M.D. 08/28/2018 3:44 PM Dictated: 08/28/18 1541 Transcribed: 08/28/18 1541 Code Status & VTE Plan VTE Prophylaxis Plan VTE Prophylaxis will be ordered: Yes _ (1) Chest pain Chest pain type: precordial pain Ischemic chest pain type: Qualified Code(s ): R07.2 - Precordial pain
[2018-08-28] MEDS ORDERED: NITROGLYCERIN SL 0.4 MG/TAB TAB SL PRN (19:50)
[2018-08-28] MEDS ORDERED: ONDANSETRON INJ 2 MG/ML 2 ML VIAL IV PRN (19:50)
[2018-08-28] MEDS ORDERED: ALBUT/IPRATROP 3MG/0.5MG NEB 3 ML VIAL NEB PRN (20:00)
[2018-08-28] MEDS: CIPROFLOXACIN 250 MG TAB PO SCH (20:28)
[2018-08-28] MEDS: SODIUM CHLORIDE 0.9% 1000ML 1,000 ML IV SCH (20:29)
[2018-08-28] MEDS ORDERED: FLUOXETINE HCL 20 MG CAP PO SCH (21:00)
[2018-08-28] MEDS ORDERED: METOPROLOL SUCC 50MG EXT REL TAB PO SCH (21:00)
[2018-08-28] MEDS: HEPARIN SOD 5,000 UNIT/0.5 ML VIAL SQ SCH (22:14)
[2018-08-29 03:03] LABS: Hematocrit (blood only) 34.9 % (37-47); Hemoglobin 11.3 g/dL (12.0-16.0); Mean Corpuscular Hgb Conc 32.4 g/dL (32-36); Mean Corpuscular Volume 83.1 fL (80-100); Platelet Count 191 K/uL (130-400); RDW Coefficient of Variation 16.4 % (11.5-14.5); RDW Standard Deviation 50.3 fL (36.4-46.3); White Blood Count 4.98 K/uL (4.8-10.8)
[2018-08-29 03:31] LABS: BUN Creatinine Ratio 6.5 (10-20); Blood Urea Nitrogen 9 mg/dl (7-18); Calcium 8.4 mg/dl (8.5-10.1); Carbon Dioxide 30 mmol/L (21-32); Chloride 106 mmol/L (98-107); Creatinine Clr Calc Pharmacy 36.2 ml/min; Est GFR (African American) 47.7; Est GFR (Non-African American) 41.2; Glucose 82 mg/dl (70-99); Potassium 4.2 mmol/L (3.5-5.1); Sodium 141 mmol/L (136-145); Troponin I < 0.015 ng/ml (0-0.045)
[2018-08-29] MEDS: SODIUM CHLORIDE 0.9% 1000ML 1,000 ML IV SCH (06:24)
[2018-08-29] MEDS: HEPARIN SOD 5,000 UNIT/0.5 ML VIAL SQ SCH (06:25)
--- NOTE | 2018-08-29 06:56 | Ultrasound Report ---
ULTRASOUND OF THE CAROTID ARTERIES CLINICAL HISTORY: Neck/carotid pain with blurry vision. COMPARISON STUDY: None. TECHNIQUE: Real-time, grayscale, and color Doppler sonography of the carotid arteries was performed. Imaging reviewed in the transverse and longitudinal planes. NASCET criteria was utilized for stenosis calcification. FINDINGS: There is minimal atherosclerotic plaque present . The peak systolic velocity within the right internal carotid artery is 64 cm/sec. The systolic velocity ratio of right internal to common carotid artery is 0.9. The peak systolic velocity within the left internal carotid artery is 66 cm/sec. The systolic velocity ratio left internal to common carotid artery is 1.1. Antegrade flow is seen in the vertebral arteries. The external carotid arteries are patent. Blood pressure in the right arm measured 139 mm/Hg. Blood pressure in the left arm measured 133 mm/H g. IMPRESSION: No evidence of hemodynamically significant carotid stenosis. Electronically signed by: Basil Ocasio M.D. 08/29/2018 6:55 AM
[2018-08-29] MEDS: CIPROFLOXACIN 250 MG TAB PO SCH (08:29)
[2018-08-29] MEDS ORDERED: ASPIRIN 81 MG ECTAB PO SCH (09:00)
[2018-08-29] MEDS ORDERED: PANTOprazole 40 MG TAB PO SCH (09:00)
--- NOTE | 2018-08-29 09:12 | Hospitalist Progress Note ---
Date of Service August 29, 2018 Assessment & Plan (1) Chest pain: Possible related to GI etiology vs anxiety Mostly atypical chest pain Received aspirin 325 mg in the ER Troponin x3 negative EKG showed no ischemic changes No arrhythmia on tele monitor Continue asa 81 mg and metoprolol Continue protonix daily Statin intolerance Cardio on board Stress echocardiography today demonstrated hyperdynamic LV response no evidence of stress-induced ischemia by EKG Recommend continuing current dosing of Toprol and triamterene hydrochlorothiazide Will resume diet resolved (2) RUDDY (acute kidney injury): (3) CKD (chronic kidney disease) stage 3, GFR 30-59 ml/min: Possible related to Bactrium in the setting of poor oral intake creatinine on admission 1.6, baseline btw 1.1 to 1.3 Creatine 1.4 today,After receiving NSS at 100cc Avoid nephrotoxic agents Monitor BMP (4) Epigastric abdominal pain: (5) Diaphragmatic hernia: CT abd/pelvis showed no acute finding PPI daily and zofran prn for nausea Resolved (6) Generalized anxiety disorder: Continue Zoloft (7) Vitamin D deficiency: On vit d [id number] 2xweek (8) HLD (hyperlipidemia): Chol 243 and LDL 143 on 06/23 Stopped statin 3 weeks ago Check Lipid panel (9) UTI (urinary tract infection): outpatient urine cx only showed [id number] colonies Was starting on Bactrium Will hold bactrium due to worsening creatinine UA on admission negative Complaint of dysuria and urgency today On cipro BID Intermittent blurry vision Possible related to migraine Carotid doppler showed no evidence of hemodynamically significant carotid stenosis. DVT px on heparin subq Code status full code Disposition Possible discharge home today if stable from cardiac standpoint Subjective Pt was seen and examined sitting in bed with no distress watching TV Pt said that she does not have any more mid epigastric/chest discomfort She said that she is hungry and she wants to eat She said that she feels much better today Denies any chest pain, palpitation, dizziness and SOB Physical Exam 2 Vital Signs (Past 24 Hours): Last Vital Signs Temp 36.8 C 08/29/18 07:50 Pulse 59 L 08/29/18 07:50 Resp 18 08/29/18 07:50 BP 157/76 H 08/29/18 07:50 Pulse Ox 94 08/29/18 07:50 Physical Exam: General- No acute distress Head- atraumatic Eyes- PERRL, EOMI, ENT- oropharynx clear Neck- supple, no JVD Lungs- clear to auscultation Heart- regular rhythm; no murmur Abdomen- normal bowel sounds, soft, nontender Extremities- no calf tenderness Neuro- alert, oriented x 3; PERRL, EOMI; no facial palsy; no dysarthria Skin- warm & dry _ (1) Chest pain Chest pain type: precordial pain Ischemic chest pain type: Qualified Code(s ): R07.2 - Precordial pain
[2018-08-29 10:04] LABS: Chol HDL Ratio 4; Cholesterol 125 mg/dl (0-200); HDL Cholesterol 35 mg/dl; LDL Cholesterol Calculated 69 mg/dl; Triglycerides 107 mg/dl (0-150); VLDL Cholesterol 21 mg/dl
[2018-08-29] MEDS ORDERED: ATROPINE SULFATE 0.1 MG/ML 10ML SYR IV ONE ×2 (10:27)
[2018-08-29] MEDS ORDERED: METOPROLOL TARTRATE 1 MG/ML VIAL IV ONE ×2 (10:27)
[2018-08-29] MEDS ORDERED: DOBUTamine HCL 12.5 MG/ML 20 ML VIAL IV ONE (10:27)
--- NOTE | 2018-08-29 10:30 | Cardiology Consultation ---
Date of Consultation August 29, 2018 Assessment & Plan (1) Chest pain: Chest pain has atypical features initial evaluation including cardiac enzymes and EKGs without evidence of ischemia. Given risk factors and history and difficult evaluation symptoms of exertional dyspnea, chronic will refer for to be doing stress echocardiography today Patient does have a history of chronic abdominal pain and discomfort as well chronic cough is possible sources. History of ill-defined microcytic anemia and an alkaline phosphatase elevation To be given stress echocardiography today demonstrated hyperdynamic LV response no evidence of stress-induced ischemia by EKG or echocardiographic criteria Recommend continuing current dosing of Toprol and triamterene hydrochlorothiazide (2) HLD (hyperlipidemia): Patient notes poor tolerance of statins only after a very brief trial of 4 days would recommend restarting at lower dosage as an outpatient after initial recovery of current complaints (3) Hypertension: Controlled during current examination on metoprolol and triamterene hydrochlorothiazide chronically History of Present Illness Reason for Consultation: Atypical chest discomfort Requesting Physician: Vignesh Kim MD Attending Physician: Vignesh Kim MD History of Present Illness Patient is a 58-year-old female without prior history of cardiac disease carries a history of hypertension, hyperlipidemia, chronic gastroesophageal reflux, chronic dyspnea secondary to underlying pulmonary disease, microcytic anemia Patient presents this admission not having felt well for several days. Was treated as an outpatient for a urinary tract infection with planned cultures initially begun on Bactrim. She began experiencing a burning sensation across her chest and both arms. As well as burning sensation in her neck face. Has chronic dyspnea and chronic dyspnea with exertion did not note specific changes. Noted no tachypalpitations syncope or near syncope. Has been running low-grade fever per patient. Has chronic cough but without worsening. Has been having abdominal discomfort for several days in association with urinary tract infection notes one episode of emesis in the course of above illness. Take medications as prescribed but did stop statin use recently prescribed due to myalgias and arthralgias after 4 days usage. Allergies Allergy/AdvReac Type Severity Reaction Status Date / Time atorvastatin Allergy Intermediate MUSCLE Verified 08/28/18 15:14 ACHES & PAINS Penicillins Allergy Unknown HIVES Verified 08/28/18 15:14 Home Medications Home Medications Medication Instructions Recorded Confirmed Type calcium carb-mag oxide-zinc ox 1 tab PO DAILY 08/28/18 08/28/18 History ergocalciferol (vitamin D2) 50,000 unit PO 2XWK 08/28/18 08/28/18 History [Vitamin D2] fluoxetine 20 mg PO HS 08/28/18 08/28/18 History metoprolol succinate 50 mg PO HS 08/28/18 08/28/18 History ondansetron HCl [Zofran] 4 mg PO Q8 PRN 08/28/18 08/28/18 History pantoprazole [Protonix] 20 mg PO QAM 08/28/18 08/28/18 History sulfamethoxazole-trimethoprim 1 tab PO BID 08/28/18 08/28/18 History [Bactrim DS] triamterene-hydrochlorothiazid 1 tab PO QAM 08/28/18 08/28/18 History Patient History Medical History History of abdominal hernia RUDDY (acute kidney injury) Vitamin D deficiency Generalized anxiety disorder CKD (chronic kidney disease) stage 3, GFR 30-59 ml/min Diaphragmatic hernia Chest pain (Acute) Epigastric abdominal pain (Acute) HLD (hyperlipidemia) (Chronic) Hypertension (Chronic) Benign esophageal stricture Biopsy in 2013. Bleeding internal hemorrhoids Hypercholesterolemia Microcytic anemia Pulmonary nodules Surgical History History of section History of laparoscopy History of back surgery Family History Other CAD (coronary artery disease) Diabetes Social History Current Living Situation: Spouse and Family Other Information That Helps Us Care for You: No Feels Safe at Home: Yes Safety Concerns: Feels Safe At This Time Smoking Status: Never smoker Second Hand Exposure: Yes (As a child and at work. ) Hx Alcohol Use: Yes Alcohol type: wine Alcohol Intake Frequency: holidays/ special occasions only Hx Substance Use: No Beliefs That Will Affect Care: None Preferred Language: Turkish Communication Ability: Effective Early Learning Teacher Required: No Review of Systems As per HPI and otherwise negative Physical Exam 2 Vital Signs (Past 24 Hours): Last Vital Signs Temp 36.8 C 08/29/18 07:50 Pulse 59 L 08/29/18 07:50 Resp 18 08/29/18 07:50 BP 157/76 H 08/29/18 07:50 Pulse Ox 94 08/29/18 07:50 Constitutional: well developed and + obese ENMT: external ear and nose normal, oropharynx normal Neck: trachea midline, no thyromegaly normal visual inspection and + thick neck Respiratory: normal respiratory effort, lungs clear to auscultation Cardiovascular: Rate/Rhythm: regular rate and regular rhythm Heart Sounds: normal S1 and normal S2; no gallop and no murmur Palpation: normal PMI Vessels: normal peripheral pulses; no carotid bruit and no abdominal aortic bruit Gastrointestinal (Abdomen): Inspection/Auscultation: abdomen normal to inspection and normal bowel sounds Percussion/Palpation: + abdomen tender ( mild); no hepatosplenomegaly and no abdominal aortic enlargement Musculoskeletal: no cyanosis or clubbing, extremities motor strength 5/5 Skin: no rashes, warm and dry Results & Data Laboratory Results Laboratory Results - last 24 hr 08/28/18 08/28/18 08/28/18 15:09 15:09 15:09 WBC 8.21 RBC 4.75 Hgb 13.0 Hct 38.6 MCV 81.3 MCH 27.4 MCHC 33.7 RDW Std Deviation 48.2 H RDW Coeff of Cathy 16.0 H Plt Count 249 MPV 9.9 Immature Gran % (Auto) 0.1 Neut % (Auto) 79.4 Lymph % (Auto) 15.3 [place] % (Auto) 4.6 Eos % (Auto) 0.5 Baso % (Auto) 0.1 Immature Gran # (Auto) 0.01 Neut # (Auto) 6.51 H Lymph # (Auto) 1.26 [place] # (Auto) 0.38 Eos # (Auto) 0.04 Baso # (Auto) 0.01 PT 11.5 INR 1.1 APTT 24.0 PTT Ratio 0.9 Sodium 139 Potassium 3.5 Chloride 102 Carbon Dioxide 26 Anion Gap 11.0 BUN 11 Creatinine 1.64 H Est Cr Clr Drug Dosing 30.9 Est GFR ( Amer) 40.1 Est GFR (Non-Af Amer) 34.6 BUN/Creatinine Ratio 6.9 L Glucose 107 H Calcium 9.1 Total Bilirubin 0.3 AST 13 L ALT 20 Alkaline Phosphatase 132 H Troponin I < 0.015 Total Protein 7.7 Albumin 3.9 Globulin 3.8 Albumin/Globulin Ratio 1.0 Triglycerides Cholesterol LDL Cholesterol, Calc VLDL Cholesterol, Calc HDL Cholesterol Cholesterol/HDL Ratio Lipase 120 Urine Color Urine Appearance Urine pH Ur Specific [place] Urine Protein Urine Glucose (UA) Urine Ketones Urine Blood Urine Nitrite Urine Bilirubin Urine Urobilinogen Ur Leukocyte Esterase 08/28/18 08/28/18 08/29/18 20:45 Unknown 02:56 WBC RBC Hgb Hct MCV MCH MCHC RDW Std Deviation RDW Coeff of Cathy Plt Count MPV Immature Gran % (Auto) Neut % (Auto) Lymph % (Auto) [place] % (Auto) Eos % (Auto) Baso % (Auto) Immature Gran # (Auto) Neut # (Auto) Lymph # (Auto) [place] # (Auto) Eos # (Auto) Baso # (Auto) PT INR APTT PTT Ratio Sodium 141 Potassium 4.2 D Chloride 106 Carbon Dioxide 30 Anion Gap 5.0 BUN 9 Creatinine 1.42 H Est Cr Clr Drug Dosing 36.2 Est GFR ( Amer) 47.7 Est GFR (Non-Af Amer) 41.2 BUN/Creatinine Ratio 6.5 L Glucose 82 Calcium 8.4 L Total Bilirubin AST ALT Alkaline Phosphatase Troponin I < 0.015 < 0.015 Total Protein Albumin Globulin Albumin/Globulin Ratio Triglycerides Cholesterol LDL Cholesterol, Calc VLDL Cholesterol, Calc HDL Cholesterol Cholesterol/HDL Ratio Lipase Urine Color Yellow Urine Appearance Clear Urine pH 8.0 H Ur Specific [place] 1.009 Urine Protein Negative Urine Glucose (UA) Negative Urine Ketones Negative Urine Blood Negative Urine Nitrite Negative Urine Bilirubin Negative Urine Urobilinogen Negative Ur Leukocyte Esterase Negative 08/29/18 08/29/18 02:56 02:56 WBC 4.98 RBC 4.20 Hgb 11.3 L Hct 34.9 L MCV 83.1 MCH 26.9 MCHC 32.4 RDW Std Deviation 50.3 H RDW Coeff of Cathy 16.4 H Plt Count 191 MPV 9.0 Immature Gran % (Auto) Neut % (Auto) Lymph % (Auto) [place] % (Auto) Eos % (Auto) Baso % (Auto) Immature Gran # (Auto) Neut # (Auto) Lymph # (Auto) [place] # (Auto) Eos # (Auto) Baso # (Auto) PT INR APTT PTT Ratio Sodium Potassium Chloride Carbon Dioxide Anion Gap BUN Creatinine Est Cr Clr Drug Dosing Est GFR ( Amer) Est GFR (Non-Af Amer) BUN/Creatinine Ratio Glucose Calcium Total Bilirubin AST ALT Alkaline Phosphatase Troponin I Total Protein Albumin Globulin Albumin/Globulin Ratio Triglycerides 107 Cholesterol 125 LDL Cholesterol, Calc 69 VLDL Cholesterol, Calc 21 HDL Cholesterol 35 Cholesterol/HDL Ratio 4 Lipase Urine Color Urine Appearance Urine pH Ur Specific [place] Urine Protein Urine Glucose (UA) Urine Ketones Urine Blood Urine Nitrite Urine Bilirubin Urine Urobilinogen Ur Leukocyte Esterase Diagnostic Findings Echocardiogram 08/29/2018 Normal after size and function mild redundancy of the mitral valve leaflet with mild mitral insufficiency no evidence of pulmonary hypertension ECG Additional Comments: EKG normal on 2 serial studies _ (1) Chest pain Chest pain type: precordial pain Ischemic chest pain type: Qualified Code(s ): R07.2 - Precordial pain
--- NOTE | 2018-09-03 22:32 | Discharge Summary ---
Date of Service September 03, 2018 Admission HPI Per Admitting Provider 58 y/o Female with PMH of HTN, Dyslipidemia, Anxiety , Diaphragmatic hernia , CKD stage 3 came to the ER for mid epigastric and chest discomfort. Pt said that the mid episgatric/ chest discomfort started on yesterday. She describes her symptoms as �burning discomfort�, then later she said that she feels a pressure in her chest like someone sitting in her chest. she said that it radiating to her left jaw area and left shoulder area associated with numbness in her arm. She said that today her chest discomfort worsening. She said that she had an episode of vomiting today. She was seen at her PCP last Wednesday for UTI and was given bactrium. She said that she had many stress test done in the past and last one was about 4 years ago. She said that she was starting on statin but could not tolerate due to muscle ache. Pt said that she has been having a burning pain around her carotid area for the last 2 weeks that was associated with blurry vision. She said that she does have SOB on exertion at baseline. She has not been using her neb treatment because her insurance does not cover it. Received fentanyl, aspirin and GI cokctail in the ER. Currently denies any chest pain, palpitation and sob. Admission Exam Per Admitting Provider General- No acute distress Head- atraumatic Eyes- PERRL, EOMI, ENT- oropharynx clear Neck- supple, no JVD Lungs- clear to auscultation Heart- regular rhythm; no murmur Abdomen- normal bowel sounds, soft, +tender Extremities- no calf tenderness Neuro- alert, oriented x 3; PERRL, EOMI; no facial palsy; no dysarthria Skin- warm & dry Principal Diagnosis Chest Pain Discharge Exam General- No acute distress Head- atraumatic Eyes- PERRL, EOMI, ENT- oropharynx clear Neck- supple, no JVD Lungs- clear to auscultation Heart- regular rhythm; no murmur Abdomen- normal bowel sounds, soft, nontender Extremities- no calf tenderness Neuro- alert, oriented x 3; PERRL, EOMI; no facial palsy; no dysarthria Skin- warm & dry Discharge Data Allergies Allergy/AdvReac Type Severity Reaction Status Date / Time atorvastatin Allergy Intermediate MUSCLE Verified 08/28/18 15:14 ACHES & PAINS Penicillins Allergy Unknown HIVES Verified 08/28/18 15:14 Consultations 08/28/18 17:33 ED Decision to Admit Stat 08/28/18 19:50 Consult Cardiology Routine Ordered Studies 08/28/18 16:05 CT abd pelvis IV con only Stat 08/29/18 07:16 US carotid doppler BI Urgent ULTRASOUND OF THE CAROTID ARTERIES CLINICAL HISTORY: Neck/carotid pain with blurry vision. COMPARISON STUDY: None. TECHNIQUE: Real-time, grayscale, and color Doppler sonography of the carotid arteries was performed. Imaging reviewed in the transverse and longitudinal planes. NASCET criteria was utilized for stenosis calcification. FINDINGS: There is minimal atherosclerotic plaque present . The peak systolic velocity within the right internal carotid artery is 64 cm/ sec. The systolic velocity ratio of right internal to common carotid artery is 0.9. The peak systolic velocity within the left internal carotid artery is 66 cm/sec. The systolic velocity ratio left internal to common carotid artery is 1.1. Antegrade flow is seen in the vertebral arteries. The external carotid arteries are patent. Blood pressure in the right arm measured 139 mm/Hg. Blood pressure in the left arm measured 133 mm/Hg. IMPRESSION: No evidence of hemodynamically significant carotid stenosis. Electronically signed by: Basil Ocasio M.D. 08/29/2018 6:55 AM Dictated: 08/29/18652 Transcribed: 08/29/18652 CT OF THE ABDOMEN AND PELVIS WITH CONTRAST CLINICAL HISTORY: Upper abdominal pain. COMPARISON STUDY: PET/CT March 03, 2017. TECHNIQUE: Following IV administration of 120 mL of Optiray-320, axial images of the abdomen and pelvis were obtained from the lung bases to the proximal femurs. Images were reviewed in the axial, sagittal, and coronal planes. IV contrast was administered without complication. Automated exposure control was utilized for the study. A dose lowering technique was utilized adhering to the principles of ALARA. CT DOSE: 400.42 mGy.cm FINDINGS: Multiple nodules within visualized portions of the lower lungs are unchanged since CT of April 18, 2018, including a 1.3 cm right lower lobe nodule on image 36 of 426. No pneumatosis, free air or portal venous gas is present. There is fatty infiltration of the liver. The spleen, adrenal glands and pancreas are normal. A 1.7 cm lesion within the upper pole of the left kidney represents a hyperdense cyst when correlating with prior noncontrast chest CT. There is a cyst within the upper pole the right kidney. There is no evidence for a bowel obstruction. The appendix is normal. There is no ascites or lymphadenopathy. There is no evidence for a bowel obstruction. No bowel wall thickening is noted. There are no suspicious osseous lesions. Major vasculature is patent. No peripancreatic or pericholecystic infiltration is present. IMPRESSION: 1. No acute process within the abdomen or pelvis. 2. Multiple pulmonary nodules within the lower lungs which are unchanged since CT of April 18, 2018. These remain indeterminate. 3. Fatty infiltration of the liver. 4. Normal appendix. No bowel obstruction. Electronically signed by: Kike Erickson M.D. 08/28/2018 5:06 PM Dictated: 08/28/[id number] Transcribed: 08/28/181658 Hospital Course (1) Chest pain: Possible related to GI etiology vs anxiety Mostly atypical chest pain Received aspirin 325 mg in the ER Troponin x3 negative EKG showed no ischemic changes No arrhythmia on tele monitor Continue asa 81 mg and metoprolol Continue protonix daily Statin intolerance Cardio on board Stress echocardiography today demonstrated hyperdynamic LV response no evidence of stress-induced ischemia by EKG Recommend continuing current dosing of Toprol and triamterene hydrochlorothiazide Will resume diet resolved (2) RUDDY (acute kidney injury): (3) CKD (chronic kidney disease) stage 3, GFR 30-59 ml/min: Possible related to Bactrium in the setting of poor oral intake creatinine on admission 1.6, baseline btw 1.1 to 1.3 Creatine 1.4 today,After receiving NSS at 100cc Avoid nephrotoxic agents Monitor BMP (4) Epigastric abdominal pain: (5) Diaphragmatic hernia: CT abd/pelvis showed no acute finding PPI daily and zofran prn for nausea Resolved (6) Generalized anxiety disorder: Continue Zoloft (7) Vitamin D deficiency: On vit d [id number] 2xweek (8) HLD (hyperlipidemia): Chol 243 and LDL 143 on 06/23 Stopped statin 3 weeks ago Check Lipid panel (9) UTI (urinary tract infection): outpatient urine cx only showed [id number] colonies Was starting on Bactrium Will hold bactrium due to worsening creatinine UA on admission negative Complaint of dysuria and urgency today On cipro BID Intermittent blurry vision Possible related to migraine Carotid doppler showed no evidence of hemodynamically significant carotid stenosis. DVT px on heparin subq Code status full code Disposition Possible discharge home today if stable from cardiac standpoint Total Time Total Time Spent Total Time Spent (In Minutes): 35 minutes Total Time Includes: Examination of the Patient, Discharge Planning, Medication Reconciliation, Communication With Other Providers and Other Discharge Plan Discharge Items Patient Disposition: Home - Self-Care Reason For Visit: CHEST PAIN Discharge Diagnosis: Chest pain Discharge Goals: Decrease discomfort, Diagnostic testing, Improve function and Increase independence Activity: Resume your previous activity Non-emergency contact: Primary Care Provider Call non-emergency contact if: you have any medication questions, your symptoms worsen and your pain is worsening Diet: Heart Healthy Addtl Provider Instructions: Follow up with your primary care provider Dr. Garcia (Dr. Woodard's Colleague ) on 09/05 @10:45 AM Antibiotic changed to Cipro. Your physician will monitor your kidney function Prescriptions: New promethazine 12.5 mg tablet 12.5 mg PO BID PRN (Reason: nausea and vomiting) Qty: 30 RF: 0 Continue metoprolol succinate 50 mg Tablet Extended Release 24 Hr 50 mg PO HS RF: 0 ondansetron HCl [Zofran] 4 mg Tablet 4 mg PO Q8 PRN (Reason: Nausea) RF: 0 pantoprazole [Protonix] 20 mg Tablet,Delayed Release (Dr/Ec) 20 mg PO QAM RF: 0 fluoxetine 20 mg Tablet 20 mg PO HS RF: 0 triamterene-hydrochlorothiazid 37.5-25 mg Tablet 1 tab PO QAM RF: 0 ergocalciferol (vitamin D2) [Vitamin D2] 50,000 unit Capsule 50,000 unit PO 2XWK RF: 0 calcium carb-mag oxide-zinc ox 334-134-5 mg Tablet 1 tab PO DAILY RF: 0 Discontinued sulfamethoxazole-trimethoprim [Bactrim DS] 800-160 mg Tablet 1 tab PO BID RF: 0 Stand-Alone Forms: [facility] Discharge Orders: Discharge Order (Routine); Ordered 08/29/18 Ordered By: Vignesh Kim Admission Data Admit Date/Time: 08/28/18 18:31 Attending Provider: Vignesh Kim Admit Provider: Vignesh Kim Primary Care Provider: Marjan Woodard Other Providers: Vignesh Kim ; Ezra Schmitt Service: Telemetry Other Interventions: Discharge Summary Assessment (RN) Last Done: 08/29/18 14:19 DC Date/Time DO NOT enter until pt leaves facility: 08/29/18 15:47
== END 2018-08-29 15:47 | disposition home or self-care (01) ==
LOC: ED 14:42 → 2S 14:42